=== PATIENT | female | born 1995 | race African-American/Black ===

== ENCOUNTER 2023-11-07 14:13 | Emergency (ER) | payer OTHER, MEDICAID ==
[~2023-11-07] VITALS: Ht 160 cm; Wt 69.1 kg
[~2023-11-07 14:13] MED LIST: CIPRO 500MG TA500 MG PO; DIFLUCAN150 MG PO; FLAGYL500 MG PO; MACROBID 1100 MG/CAP PO; ZITHROMAX 250M250 MG PO; ZITHROMAX500 M2 PO
[2023-11-07] MEDS ORDERED: LEVAQUIN 750MG750 M1 PO (15:01)
[2023-11-07 15:09] VITALS: BP 130/81; PULSE 90; TEMP 98
== END 2023-11-07 15:10 | disposition home or self-care (01) ==
LOC: COL.ER 14:13
DX: J04.0 Acute laryngitis (principal); Z79.52 Long term (current) use of systemic steroids; Z88.1 Allergy status to other antibiotic agents

== ENCOUNTER → 2024-07-09 | Outpatient (CLI) | payer SELFPAY ==
[~2024-07-09] MED LIST changes: +LEVAQUIN 750MG750 M1 PO
== END ==
LOC: WSPT 15:00
DX: S13.4XXD Sprain of ligaments of cervical spine, subsequent encounter (principal); X58.XXXD Exposure to other specified factors, subsequent encounter

== ENCOUNTER → 2024-07-17 | Outpatient (CLI) | payer SELFPAY | LOC: WSC 15:58 | DX: S13.4XXD Sprain of ligaments of cervical spine, subsequent encounter (principal); X58.XXXD Exposure to other specified factors, subsequent encounter ==